=== PATIENT | female | born 1990 | race Caucasian/White ===

== ENCOUNTER 2019-03-31 05:59 | Day surgery (SDC) | payer MEDICAID ==
[2019-03-31] VITALS (10 sets, daily range): BP systolic 120–143; BP diastolic 74–94
[~2019-03-31] VITALS: Ht 152.4 cm; Wt 48.1 kg
[~2019-03-31 05:59] MED LIST: ALBU8.5H8 IH; AZIT-63 PO; CALC-1051 PO; CHOL10002 PO; COLI150V12 IH; DRON2.5C PO; DULO60CA45 PO; FERR325T28 PO; FLUC150T66 PO; FLUT1DIS4 INH; FOLI1TAB16 PO; GABA-532 PO; HYDR-3972 PO; INSU200I; ITRA10SO PO; LEVO500T2 PO; LIPA1CAP21; LORA0.5T PO; LORA10TA65 PO; LUBI24CA5 PO; MAG PO; MESSAGE TO NURSING PO ONE; MIRT15TA PO; MORP15TA PO; MULT-933 PO; MYCO250C46 PO; NALO25TA PO; NORE-33 PO; ONDA4TAB6 PO; PANT-47 PO; POLY17PO10 PO; PRAV20TA4 PO; PRED5TAB PO; PROTEIN PO; RANI-648 PO; SENN-173 PO; SULF1TAB49 PO; SUMA50TA PO; TACR1CAP PO; URSO300C8 PO; VALG450T13 PO; VERA120T2 PO; famotidine 20mg tablet PO ONE; ringers solution, lacted 1,000 ML IV SCH
[2019-03-31] MEDS ORDERED: LIDOcaine 1% (10mg/ml) 2ml vial ONE (06:58)
[2019-03-31 07:35] LABS: BASOPHILS % (AUTO) 0.7 % (0-1); EOSINOPHILS # (AUTO) 0.1 X10'3 (0-0.9); EOSINOPHILS % (AUTO) 3.2 % (0-6); LYMPHOCYTES # (AUTO) 1.3 X10'3 (1.1-4.8); LYMPHOCYTES % (AUTO) 48.7 % (21-51); MEAN CORPUSCULAR HEMOGLOBIN 25.9 PG (27.0-31.0); MEAN CORPUSCULAR HGB CONC 32.7 g/dL (33.0-36.5); MEAN CORPUSCULAR VOLUME 79.2 FL (78-98); MEAN PLATELET VOLUME 6.9 FL (7.4-10.4); MONOCYTES # (AUTO) 0.3 X10'3 (0-0.9); MONOCYTES % (AUTO) 9.6 % (2-12); NEUTROPHILS % (AUTO) 37.8 % (42-75); PRE OP HEMATOCRIT 41.6 % (35.0-45.0); PRE OP HEMOGLOBIN 13.6 g/dL (12.0-16.0); PRE OP PLATELET COUNT 391 X10'3 (140-440); RED BLOOD COUNT 5.25 X10'6 (4.20-5.60); RED CELL DISTRIBUTION WIDTH 15.4 % (11.5-14.5)
[2019-03-31 07:44] LABS: PREOP HCG, QL SERUM NEGATIVE (NEGATIVE)
--- NOTE | 2019-03-31 07:45 | NUR ---
WBC 2.6 ALT 88 Addendum: 03/31/19 at 0853 by Kacey Webster RN DR. GORDON MADE AWARE
[2019-03-31 07:49] LABS: ALBUMIN 3.4 G/DL (3.4-5.0); ALBUMIN/GLOBULIN RATIO 0.7 (1.1-1.5); ALKALINE PHOSPHATASE 594 IU/L (46-116); BLOOD UREA NITROGEN 15 MG/DL (7-18); BUN/CREATININE RATIO 12.8 (6.6-38.0); CALCIUM 9.4 MG/DL (8.5-10.1); CHLORIDE 105 MMOL/L (99-107); CREATININE 1.17 MG/DL (0.40-0.90); PRE OP ANION GAP 12 (8-16); PRE OP AST 68 U/L (10-37); PRE OP BILIRUB, TOTAL 0.1 MG/DL (0.0-1.0); PRE OP GLUCOSE 109 MG/DL (70-104); PRE OP SODIUM 140 MMOL/L (135-145); TOTAL CARBON DIOXIDE 23.2 MMOL/L (24-32); TOTAL PROTEIN 8.1 G/DL (6.4-8.2); eGFR 56 ML/MIN
[2019-03-31 07:51] LABS: PRE OP POTASSIUM 4.3 MMOL/L (3.4-5.1)
[2019-03-31 07:53] LABS: PRE OP ALT 88 U/L (30-65); PRE OP PARTIAL THROMB. TIME 24 SECONDS (22-32)
[2019-03-31] MEDS ORDERED: cefazolin/dext.iso 2gm/50ml 50 ML IV ONE (08:10)
[2019-03-31] MEDS ORDERED: fentaNYL/PF 50MCG/1 ML 2ML syringe ONE (08:15)
[2019-03-31] MEDS ORDERED: propofol inj 20 ML IV ONE (08:16)
[2019-03-31] MEDS ORDERED: midazolam 2 mg/2 ml injection ONE (08:16)
[2019-03-31] MEDS ORDERED: ringers solution, lacted 1,000 ML IV SCH (08:21)
[2019-03-31] MEDS ORDERED: morphine 4 MG/ML inj SYRINge IV PRN ×2 (08:25)
[2019-03-31] MEDS ORDERED: proCHLORperazine 10 MG/2 ml inj IV PRN (08:25)
[2019-03-31] MEDS ORDERED: ondansetron/PF 4mg/2ml inj IV PRN (08:25)
[2019-03-31] MEDS ORDERED: meperidine/PF 25mg/ml syringe IV PRN ×2 (08:25)
[2019-03-31] MEDS ORDERED: sevoflurane 250ml liquid IH ONE (08:37)
[2019-03-31] MEDS ORDERED: dexamethasone sod phosphate 4mg/ml inj. ONE (08:49)
[2019-03-31] MEDS ORDERED: BUPIVAcaine/PF 2.5 mg/ml (0.25%) 30ml vial ONE (08:55)
[2019-03-31 08:58] LABS: TOTAL CELLS COUNTED 100
[2019-03-31 08:59] LABS: MICROCYTOSIS 1+; PLATELET ESTIMATE NORMAL
[2019-03-31] MEDS ORDERED: mupirocin 2% ointment 22GM ONE ×2 (09:19→09:59)
--- NOTE | 2019-03-31 09:31 | NUR ---
Received from OR via [facility], accompanied by Anesthesiologist Chasity and report given by Anesthesiolgist. Pt VS stable, O2 mask at 10L and sats 99%. Pt IV 18G to left forearm running IVF at 100cc/hr. Dressing to abdomen 4x4 dressing with foam tape CDI. BLL. No duvall cath.
[2019-03-31] MEDS: meperidine/PF 25mg/ml syringe IV PRN ×2 (09:44→09:56)
[2019-03-31] MEDS ORDERED: diphenhydrAMINE 50 mg/ml inj ONE (10:34)
[2019-03-31] MEDS ORDERED: diphenhydrAMINE 50 mg/ml inj IV ONE ×2 (10:35→10:55)
[2019-03-31] MEDS ORDERED: HYDROcodone/acetaminophen 10/325mg tab PO ONE (10:50)
--- NOTE | 2019-03-31 11:29 | NUR ---
Pt discharged to vehicle without incident after pt picked up belongings from admitting/security. Pt verbalizes understanding of all information. Sent home with large bandaids and wound ointment. IV taken out. Dressing remains CDI. Attempted to call and clarify if patient could have a second pain prescription prior to leaving and did not receive a call back. Patient states she will take her norcos that she already has at home, does not want to wait for call back, would prefer to go home. Pt knows to call Dr Rhodes's office if she starts feeling sick or starts to increase temperatures, pt knows she is at risk for infection with her history.
== END 2019-03-31 11:29 | disposition home or self-care (01) ==
LOC: PAS 05:59
PROVIDERS: ATTEND Surgery
DX: K94.29 Other complications of gastrostomy (principal); E11.22 Type 2 diabetes mellitus with diabetic chronic kidney disease; I12.9 Hypertensive chronic kidney disease with stage 1 through stage 4 chronic kidney disease, or unspecified chronic kidney disease; N18.9 Chronic kidney disease, unspecified; M19.90 Unspecified osteoarthritis, unspecified site; D64.9 Anemia, unspecified; Z79.2 Long term (current) use of antibiotics; Z79.899 Other long term (current) drug therapy; Z88.8 Allergy status to other drugs, medicaments and biological substances; Z88.1 Allergy status to other antibiotic agents; Z87.01 Personal history of pneumonia (recurrent); Z87.440 Personal history of urinary (tract) infections; Z94.2 Lung transplant status; Z79.01 Long term (current) use of anticoagulants; Y83.8 Other surgical procedures as the cause of abnormal reaction of the patient, or of later complication, without mention of misadventure at the time of the procedure; Y82.8 Other medical devices associated with adverse incidents
CPT/HCPCS: 36415; 43870; 71045; 80053; 84703; 85025; 85610; 85730; 93005; J1100; J1200; J2001; J2175; J2250; J2270; J2704; J3010; J3490; J7120; A4618; A6449; A7000

== ENCOUNTER 2022-06-04 12:13 | Emergency (ER) | payer MEDICAID ==
[~2022-06-04] VITALS: Ht 152.4 cm; Wt 38.0 kg
[~2022-06-04 12:13] MED LIST changes: +ALBU8.5H17 IH; -ALBU8.5H8 IH; -AZIT-63 PO; +AZIT-83 PO; +DIF150T PO; -DULO60CA45 PO; +DULO60CA60 PO; -FLUC150T66 PO; -FOLI1TAB16 PO; +FOLI1TAB27 PO; -MESSAGE TO NURSING PO ONE; +MIRT-116 PO; -MIRT15TA PO; -NALO25TA PO; +NALO25TA4 PO; -famotidine 20mg tablet PO ONE; -ringers solution, lacted 1,000 ML IV SCH
[2022-06-04] MEDS ORDERED: BEBTELOVIMAB 175 MG/2 ML VIAL IV ONE (12:20)
[2022-06-04] MEDS ORDERED: normal saline 1000ML IV soln IVB ONE (12:45)
[2022-06-04] MEDS ORDERED: heparin sodium, porcine/PF 100unit/ml 5ML syringe IV STA (13:31)
[2022-06-04 14:21] VITALS: BP 119/76
--- NOTE | 2022-06-04 15:48 | NUR ---
Reviewed Florencio SALEH, agreed with general assessment
== END 2022-06-04 15:49 | disposition home or self-care (01) ==
LOC: ER 12:14
DX: U07.1 COVID-19 (principal); R50.9 Fever, unspecified; Z98.890 Other specified postprocedural states; Z88.6 Allergy status to analgesic agent; Z88.8 Allergy status to other drugs, medicaments and biological substances; Z79.2 Long term (current) use of antibiotics; Z79.899 Other long term (current) drug therapy
CPT/HCPCS: 96374; 99284; J1642; J7030; M0222; Q0222